=== PATIENT | female | born 1980 | race Caucasian/White ===

== ENCOUNTER 2023-06-28 13:23 | Emergency (ER) | payer BC ==
[~2023-06-28] VITALS: Ht 167.7 cm; Wt 97.5 kg
[2023-06-28] MEDS ORDERED: KETOROLAC INJ 30 MG/ML VIAL IVP ONE (14:00)
[2023-06-28] MEDS ORDERED: ONDANSETRON INJECTION 4 MG/2 ML (SDV) IVP ONE (14:00)
--- NOTE | 2023-06-28 14:03 | ED Back Pain ---
General Chief Complaint: Back Problems Stated Complaint: KIDNEY PAIN | VOMITING Nursing Triage Note: PT AMB TO RM 4 WITH CC OF L FLANK PAIN SINCE 0300 THIS AM. PT REPORTS RECENT UTI. PT STATES NAUSEA AND VOMITING THIS AM. Source of Information: Patient Exam Limitations: No Limitations (JV MIN) History of Present Illness Date Seen by Provider: Jun 28, 2023 Time Seen by Provider: 14:01 Initial Comments Patient is a 42-year-old female who presents ED with left flank pain. Pain started around 3:00 this morning. Sharp stabbing pain with radiation to left sided abdomen. She denies of any pain with urination frequent urination. She states she has been on Bactrim 3 times over the past 2 months secondary to UTI. Was seen at her primary care physician this morning that noted blood in her uri ne. Outpatient ultrasound of the kidneys were ordered. She states she cannot wait to her appointment. Started vomiting 5 times at home immediately came to ED. No history of kidney stones but does have a history of urinary tract infection. History of gastric bypass, 2 C-sections. She does report chills today. She denies any fever, chest pain, shortness of breath, headache, dizziness. She does report few episodes of diarrhea. Denies taking thing for pain. (JV MIN) Allergies and Home Medications Allergies Coded Allergies: No Known Drug Allergies (Unverified , 06/28/23) Patient Home Medication List Home Medication List Reviewed: Yes (JV MIN) Review of Systems Constitutional: chills; No diaphoresis; malaise, weakness EENTM: No hearing loss, No ear pain, No blurred vision Respiratory: No cough Cardiovascular: No chest pain Gastrointestinal: abdominal pain, diarrhea, nausea, vomiting Genitourinary: No decreased output, No discharge, No dysuria, No frequency, No hematuria Musculoskeletal: back pain; No joint pain Skin: No change in color (JV MIN) All Other Systems Reviewed Negative Unless Noted: Yes (JV MIN) Physical Exam Vital Signs Vital Signs - First Documented 06/28/23 13:52 Pulse 59 Resp 16 B/P (MAP) 172/100 (124) Pulse Ox 100 O2 Delivery Room Air (EAN MUSE MD) Vital Signs Capillary Refill : Less Than 3 Seconds (JV MIN) Height, Weight, BMI Height: '" Weight: lbs. oz. kg; 34.00 BMI Method: General Appearance: No Apparent Distress, WD/WN HEENT: PERRL/EOMI, TMs Normal, Normal ENT Inspection Neck: Full Range of Motion, Normal Inspection, Non Tender, Supple Cardiovascular: Regular Rate, Rhythm, No Edema, No Gallop, No JVD Respiratory: Chest Non Tender, Lungs Clear, Normal Breath Sounds, No Accessory Muscle Use, No Respiratory Distress Gastrointestinal: Normal Bowel Sounds, No Organomegaly, No Pulsatile Mass, Soft, Tenderness (Left-sided abdominal tenderness.), Other Back: CVA Tenderness (L) Extremity: Normal Capillary Refill, Normal Inspection, Normal Range of Motion, Non Tender Neurologic/Psychiatric: Alert, Oriented x3, No Motor/Sensory Deficits, Normal 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, 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 Norm as Tested Skin: Normal Color, Warm/Dry (JV MIN) Progress/Results/Core Measures Results/Orders Lab Results Laboratory Tests Test 06/28/23 14:02 Range/Units White Blood Count 15.3 H 4.3-11.0 10^3/uL Red Blood Count 4.57 3.80-5.11 10^6/uL Hemoglobin 13.4 11.5-16.0 g/dL Hematocrit 43 35-52 % Mean Corpuscular Volume 93 80-99 fL Mean Corpuscular Hemoglobin 29 25-34 pg Mean Corpuscular Hemoglobin Concent 32 32-36 g/dL Red Cell Distribution Width 13.8 10.0-14.5 % Platelet Count 286 130-400 10^3/uL Mean Platelet Volume 10.8 9.0-12.2 fL Immature Granulocyte % (Auto) 0 % Neutrophils (%) (Auto) 91 H 42-75 % Lymphocytes (%) (Auto) 6 L 12-44 % Monocytes (%) (Auto) 2 0-12 % Eosinophils (%) (Auto) 0 0-10 % Basophils (%) (Auto) 0 0-10 % Neutrophils # (Auto) 13.9 H 1.8-7.8 10^3/uL Lymphocytes # (Auto) 1.0 1.0-4.0 10^3/uL Monocytes # (Auto) 0.4 0.0-1.0 10^3/uL Eosinophils # (Auto) 0.0 0.0-0.3 10^3/uL Basophils # (Auto) 0.0 0.0-0.1 10^3/uL Immature Granulocyte # (Auto) 0.0 0.0-0.1 10^3/uL Neutrophils % (Manual) 92 % Lymphocytes % (Manual) 8 % Monocytes % (Manual) 0 % Eosinophils % (Manual) 0 % Basophils % (Manual) 0 % Band Neutrophils 0 % Blood Morphology Comment NORMAL Urine Color YELLOW Urine Clarity CLEAR Urine pH 7.0 5-9 Urine Specific [place] 1.020 1.016-1.022 Urine Protein NEGATIVE NEGATIVE Urine Glucose (UA) NEGATIVE NEGATIVE Urine Ketones 2+ H NEGATIVE Urine Nitrite POSITIVE H NEGATIVE Urine Bilirubin NEGATIVE NEGATIVE Urine Urobilinogen 0.2 < = 1.0 MG/DL Urine Leukocyte Esterase NEGATIVE NEGATIVE Urine RBC (Auto) 1+ H NEGATIVE Urine RBC 5-10 H /HPF Urine WBC NONE /HPF Urine Squamous Epithelial Cells 0-2 /HPF Urine Crystals NONE /LPF Urine Bacteria TRACE /HPF Urine Casts NONE /LPF Urine Mucus NEGATIVE /LPF Urine Culture Indicated YES Urine Test NEGATIVE NEGATIVE Sodium Level 139 135-145 MMOL/L Potassium Level 3.9 3.6-5.0 MMOL/L Chloride Level 108 H 98-107 MMOL/L Carbon Dioxide Level 20 L 21-32 MMOL/L Anion Gap 11 5-14 MMOL/L Blood Urea Nitrogen 14 7-18 MG/DL Creatinine 1.12 0.60-1.30 MG/DL Estimat Glomerular Filtration Rate 62 BUN/Creatinine Ratio 13 Glucose Level 136 H 70-105 MG/DL Calcium Level 9.3 8.5-10.1 MG/DL Corrected Calcium 9.2 8.5-10.1 MG/DL Total Bilirubin 0.4 0.1-1.0 MG/DL Aspartate Amino Transf (AST/SGOT) 23 5-34 U/L Alanine Aminotransferase (ALT/SGPT) 17 0-55 U/L Alkaline Phosphatase 71 40-136 U/L C-Reactive Protein High Sensitivity 1.31 H 0.00-0.50 MG/DL Total Protein 7.8 6.4-8.2 GM/DL Albumin 4.1 3.2-4.5 GM/DL Lipase 14 8-78 U/L (EAN MUSE MD) Vital Signs/I&O 06/28/23 06/28/23 13:52 20:49 Pulse 59 72 Resp 16 16 B/P (MAP) 172/100 (124) 149/87 Pulse Ox 100 97 O2 Delivery Room Air Room Air (EAN MUSE MD) Blood Pressure Mean: 124 Departure Communication (PCP) Patient is a 42-year-old female presents ED with left flank pain vomiting. She states she has had 3 different urinary tract infections over the past 2 months. Severe left stabbing flank pain. Pain does radiate. Vomiting today. She was afebrile but was hypertensive. CBC, CMP, lipase, urinalysis was ordered. CBC showed a white blood count of 15. Normal kidney function liver function pancreatic function. Tenderness to left flank. Did receive Toradol with improvement. Started on a liter of fluid. Patient Was given IV Zofran improvement in nausea. Pain better well-controlled. Urinalysis positive for nitrites red blood cells. No leukocytes or white blood cells. CT on the pelvis shows Left kidney with mild hydronephrosis with an approximately 0.5 cm stone in the proximal left ureter. Due to the infection and ureter stone patient was discussed with urology at [facility] Dr. Bowen. Recommended a stent and transfer to their facility. Patient was discussed with Dr. Kline hospitalist who agreed to accept patient. Patient did receive a liter of fluid. Vital sign s stable. Normal kidney function. Does not appear toxic. Pain well- controlled. Due to limited ground transportation patient was requesting to travel by POV. Attempted to work on other services for ground EMS transportation but she did not want to secondary to cost. Family was able to take patient to [facility]. Patient is hemodynamically stable. I do think this is reasonable due to limitations of traveling. patient states she will travel immediately to [facility]. Recommend staying NPO. (JV MIN) Impression Primary Impression: Ureterolithiasis Disposition: 02 XFER SHT-TRM HOSP Condition: Stable Transfer BH Medically Cleared for Xfer: Yes Transfer Reason: Exceeds level of care Time Spoke to Accepting Phy: 17:21 Transfer Time: 17:21 Transfer Facility: [facility] Method of Transfer: Private Vehicle (JV MIN) Departure-Patient Inst. Referrals: NO,LOCAL PHYSICIAN (PCP/Family) Primary Care Physician ATTENDING PHYSICIAN NOTE: I was physically present as attending physician in the emergency department dur ng the care of this patient, but I was not directly involved in the decision making or delivery of care for this patient. (EAN MUSE MD) JV MIN Jun 28, 2023 14:03 EAN MUSE MD Jun 29, 2023 06:11
[2023-06-28 14:13] LABS: BASOPHILS % (AUTO) 0 % (0-10); EOSINOPHILS % (AUTO) 0 % (0-10); HEMATOCRIT 43 % (35-52); HEMOGLOBIN 13.4 g/dL (11.5-16.0); LYMPHOCYTES % (AUTO) 6 % (12-44); MEAN CORPUSCULAR HEMOGLOBIN 29 pg (25-34); MEAN CORPUSCULAR HGB CONC 32 g/dL (32-36); MEAN CORPUSCULAR VOLUME 93 fL (80-99); MEAN PLATELET VOLUME 10.8 fL (9.0-12.2); MONOCYTES # (AUTO) 0.4 10^3/uL (0.0-1.0); MONOCYTES % (AUTO) 2 % (0-12); NEUTROPHILS # (AUTO) 13.9 10^3/uL (1.8-7.8); NEUTROPHILS % (AUTO) 91 % (42-75); PLATELET COUNT 286 10^3/uL (130-400); WHITE BLOOD COUNT 15.3 10^3/uL (4.3-11.0)
[2023-06-28 14:22] LABS: COLOR,URINE YELLOW
[2023-06-28 14:23] LABS: BILIRUBIN,URINE NEGATIVE (NEGATIVE); CLARITY,URINE CLEAR; GLUCOSE, URINE (UA) NEGATIVE (NEGATIVE); KETONES,URINE 2+ (NEGATIVE); LEUKOCYTE ESTERASE ,URINE NEGATIVE (NEGATIVE); NITRITE,URINE POSITIVE (NEGATIVE); PROTEIN,URINE NEGATIVE (NEGATIVE)
[2023-06-28 14:29] LABS: ALBUMIN 4.1 GM/DL (3.2-4.5); POTASSIUM 3.9 MMOL/L (3.6-5.0)
[2023-06-28 14:30] LABS: CALCIUM 9.3 MG/DL (8.5-10.1)
[2023-06-28 14:31] LABS: TOTAL PROTEIN 7.8 GM/DL (6.4-8.2)
[2023-06-28 14:33] LABS: BACTERIA,URINE TRACE /HPF; BILIRUBIN,TOTAL 0.4 MG/DL (0.1-1.0); SQUAMOUS EPITHELIAL CELL,UR 0-2 /HPF
[2023-06-28 14:35] LABS: CREATININE SERUM 1.12 MG/DL (0.60-1.30)
[2023-06-28 14:45] LABS: BAND NEUTROPHILS 0 %; BASOPHILS % (MANUAL) 0 %; EOSINOPHILS % (MANUAL) 0 %; LYMPHOCYTES % (MANUAL) 8 %; MONOCYTES % (MANUAL) 0 %; NEUTROPHILS % (MANUAL) 92 %; RBC MORPH NORMAL
--- NOTE | 2023-06-28 14:49 | Diagnostic Imaging Report ---
PROCEDURE: CT urinary tract, rule out kidney stone. TECHNIQUE: Multiple contiguous axial images were obtained through the abdomen and pelvis without the use of intravenous contrast. Auto Exposure Controls were utilized during the CT exam to meet ALARA standards for radiation dose reduction. INDICATION: Bilateral flank pain. Unenhanced images of liver and spleen reveal no focal abnormality. Surgical findings of gastric bypass. No gallbladder, pancreatic or adrenal gland abnormality is identified. Unenhanced images of the right kidney are unremarkable. Left kidney demonstrates mild hydronephrosis with an approximately 0.5 cm stone in the proximal left ureter. There is no free fluid in the abdomen or pelvis. No pathologic adenopathy is seen. The uterus is surgically absent with several dominant follicles in remaining left ovary. Urinary bladder is unremarkable without evidence of filling defect. There is moderate lower lumbar degenerative disc disease. IMPRESSION: At least partially obstructing 0.5 cm calculus in the midportion of the left ureter. Otherwise, no definite acute abnormality is identified. Dictated by: Dictated on workstation # [id number]
[2023-06-28] MEDS ORDERED: NS IV 1000 ML 1,000 ML ONE (15:43)
[2023-06-28] MEDS ORDERED: NS IV 1000 ML 1,000 ML IV SCH (15:45)
[2023-06-28] MEDS ORDERED: cefTRIAXone INJECTION 2,000 MG in NS (IVPB) 50 ML 50 ML IV ONE (17:15)
[2023-06-28] MEDS ORDERED: fentaNYL INJECTION 100 MCG/2 ML VIAL IVP STA (18:48)
[2023-06-28 20:49] VITALS: BP 149/87
== END 2023-06-28 20:49 | disposition short-term general hospital (02) ==
LOC: EDUNIT# 13:23 → ER 13:27
DX: N13.2 Hydronephrosis with renal and ureteral calculous obstruction (principal); R11.2 Nausea with vomiting, unspecified
CPT/HCPCS: 36415; 74176; 80053; 81000; 83690; 84703; 85007; 85027; 86141; 87088